=== PATIENT | male | born 1975 | race Caucasian/White ===

== ENCOUNTER 2017-01-23 10:18 | Emergency (ER) | payer OTHER ==
[~2017-01-23] VITALS: Ht 180.3 cm; Wt 81.6 kg
[2017-01-23 10:18] VITALS: BP 142/88
[2017-01-23 10:30] VITALS: BP 142/88
--- NOTE | 2017-01-23 14:41 | Emergency Room Report ---
History of Present Illness General Chief Complaint: Behavioral Complaint Source: EMS Present Illness HPI Patient eloped before physician evaluation. Patient was not on a hold Allergies: Coded Allergies: No Known Allergies (Unverified , 01/23/17) Nursing Documentation-[facility] Past Medical History: No History, Except For History Of Psychiatric Problem: Yes Physical Exam Vital Signs Date Time Temp Pulse Resp B/P (MAP) Pulse Ox O2 Delivery O2 Flow Rate FiO2 01/23/17 10:06 98.2 112 17 142/88 100 Room Air Medical Decision Making Last Vital Signs Date Time Temp Pulse Resp B/P (MAP) Pulse Ox O2 Delivery O2 Flow Rate FiO2 01/23/17 10:06 98.2 112 17 142/88 100 Room Air Disposition: ELOPED Referrals: [facility],REFERRING (PCP) Ila Jensen M.D. Jan 23, 2017 14:41
== END 2017-01-23 16:57 | disposition left against medical advice (07) ==
LOC: EDBD 10:18 → EMR 10:20
DX: F91.9 Conduct disorder, unspecified (principal); Z53.21 Procedure and treatment not carried out due to patient leaving prior to being seen by health care provider
CPT/HCPCS: 99281

== ENCOUNTER 2018-03-07 00:55 | Emergency (ER) | payer OTHER ==
[~2018-03-07] VITALS: Ht 175.3 cm; Wt 61.2 kg
[2018-03-07 01:30] VITALS: BP 124/81
--- NOTE | 2018-03-07 01:49 | NUR ---
ED Nurse Note: PT became combative with staff and MD during MD assesment. staff had to call security to calm pt down. pt was not able to be deescalated. security had to escort pt off premises for the saftey of other pts, and staff.
[2018-03-07 01:50] VITALS: BP 120/73
--- NOTE | 2018-03-07 01:51 | NUR ---
Being nasty to ER , ji PUGA a "dumb ass"-security called, patient escorted out.
--- NOTE | 2018-03-07 06:57 | Emergency Room Report ---
History of Present Illness General Source: Patient Present Illness HPI Patient is a 42-year-old male presented for general evaluation. Patient reports having been using drugs earlier in the day. History is markedly limited by patient's poor cooperation. Allergies: Coded Allergies: No Known Allergies (Unverified , 01/23/17) Patient History Past Medical History: see triage record Reviewed Nursing Documentation: PMH: Agreed; PSxH: Agreed Nursing Documentation-PMH Past Medical History: No Stated History Review of Systems All Other Systems: limited - Review of systems: Review systems is limited by patient's being a poor historian Physical Exam Vital Signs Date Time Temp Pulse Resp B/P (MAP) Pulse Ox O2 Delivery O2 Flow Rate FiO2 03/07/18 01:30 67 14 Room Air 99 03/07/18 01:30 98.1 124/81 99 General Appearance: alert, GCS 15, Chronically Ill Head: normocephalic, atraumatic ENT: hearing grossly normal, normal voice Neck: full range of motion, supple Respiratory: no respiratory distress, speaking full sentences Gastrointestinal: normal inspection Musculoskeletal: no calf tenderness Neurologic: normal inspection, alert, oriented x3, normal gait Psychiatric: mood/affect normal Skin: no rash Medical Decision Making Diagnostic Impression: Primary Impression: Behavioral change ER Course Patient presented for substance abuse. Patient was noted to have prior history of methamphetamine abuse. Patient does not appear to require any laboratory testing at this time..Patient appear to have a recent drug abuse. Patient called RN a "byron webb" Patient was advised not to use foul language. Patient was continued to be verbally abusive to ER staff. Patient was subsequently escorted off the premises with security. Last Vital Signs Date Time Temp Pulse Resp B/P (MAP) Pulse Ox O2 Delivery O2 Flow Rate FiO2 03/07/18 01:50 98.1 14 120/73 99 Room Air 99 03/07/18 01:32 67 Status: improved Disposition: HOME, SELF-CARE Condition: Stable Referrals: NOT CHOSEN [facility]/,REFERRING Elder Curiel MD Mar 07, 2018 06:57
== END 2018-03-07 01:50 | disposition home or self-care (01) ==
LOC: EMR 01:44
DX: F91.9 Conduct disorder, unspecified (principal); F19.10 Other psychoactive substance abuse, uncomplicated
CPT/HCPCS: 99282